=== PATIENT | male | born 1975 | race Two or more races ===

== ENCOUNTER → 2019-10-22 | Emergency (ER) | payer OTHER ==
[~2019-10-22] VITALS: Ht 175.3 cm; Wt 74.8 kg
== END | disposition home or self-care (01) ==
LOC: ER 18:48
DX: E06.3 Autoimmune thyroiditis (principal)

== ENCOUNTER 2020-03-27 11:08 | Emergency (ER) | payer OTHER ==
[~2020-03-27] VITALS: Ht 175.3 cm; Wt 68.9 kg
== END 2020-03-27 14:28 | disposition home or self-care (01) ==
LOC: ER 11:08
DX: R34 Anuria and oliguria (principal)